=== PATIENT | female | born 1985 | race Caucasian/White ===

== ENCOUNTER 2016-11-17 08:59 | Emergency (ER) | payer OTHER ==
[~2016-11-17] VITALS: Ht 162.6 cm; Wt 65.8 kg
[~2016-11-17 08:59] MED LIST: ALPRAZOLAM; BACTROBAN22 GM TP; FLAGYL PO; IBUPROFEN800 MG PO; KEFLEX500 M1 PO; KEFLEX500 MG PO; KLONOPIN1 MG PO; LORTAB 10/500 T1 TAB PO; METHADONE PO; MORGIDOX100 MG PO; NO MEDICATIONS; NORCO 5/325 TAB1 TAB PO
[2016-11-17 09:38] LABS: URINE SOURCE CLEAN CATCH
[2016-11-17 09:44] LABS: URINE APPEARANCE TURBID; URINE BILIRUBIN NEG (NEG); URINE BLOOD 3+ (NEG); URINE COLOR ORANGE; URINE GLUCOSE NEG (NEG); URINE KETONE NEG (NEG); URINE LEUKOCYTE ESTERASE 3+ (NEG); URINE NITRATE POS (NEG); URINE PH 6.5 (5-8); URINE PROTEIN 2+ (NEG); URINE SPECIFIC GRAVITY 1.018 (1.003-1.035)
[2016-11-17 09:46] LABS: CULTURE INDICATED? YES; URINE BACTERIA AUWI 4+ (NEGATIVE); URINE SQUAMOUS EPITHELIAL CELL MOD /[HPF]; UWBCS1 AUWI 100-200 (0-5)
[2016-11-17 10:04] LABS: URINE MUCUS PRESENT
== END 2016-11-17 11:00 | disposition home or self-care (01) ==
LOC: CFTX 08:59 → CED 08:59 → CFTX 09:41
PROVIDERS: Nurse Practitioner
DX: L03.312 Cellulitis of back [any part except buttock and flank] (principal); L02.212 Cutaneous abscess of back [any part, except buttock and flank]; N39.0 Urinary tract infection, site not specified; F17.200 Nicotine dependence, unspecified, uncomplicated
CPT/HCPCS: 10060; 81003; 87070; 87077; 87086; 87088; 87186; 87205; 99283